=== PATIENT | female | born 1950 ===

== ENCOUNTER 2017-03-23 16:14 | Emergency (ER) | payer MEDICARE ==
[2017-03-23 16:19] VITALS: BMI 23.0
[2017-03-23 16:20] VITALS: O2SAT 98
--- NOTE | 2017-03-23 17:00 | C.PDOC ---
History Of Present Illness 66 y/o female with Hx of DM , HTN and recent Colonoscopy presents to ED with complaints of epigastric pain and requesting possible Endoscopy. Pain is rated a 5/5 Patient states she has "stomach problems" for about 5-6 years. Patient saw GI doctor "couple of weeks ago" for symptoms and was prescribed medication that did not alleviate symptoms. Patient also c/o chronic XAVIER intermittent right side and takes Motrin. No other complaints at this time. Time Seen by Provider: 03/23/17 16:45 Chief Complaint (Nursing): Abdominal Pain History Per: Patient History/Exam Limitations: no limitations Onset/Duration Of Symptoms: Days Current Symptoms Are (Timing): Still Present Quality Of Discomfort: Sharp Associated Symptoms: denies: Fever, Nausea, Vomiting Past Medical History Reviewed: Historical Data, Nursing Documentation, Vital Signs Vital Signs: Last Vital Signs Temp 98.1 F 03/23/17 16:19 Pulse 88 03/23/17 16:19 Resp 18 03/23/17 16:19 BP 173/90 H 03/23/17 16:19 Pulse Ox 98 03/23/17 18:03 - Medical History PMH: Arthritis, HTN, Hypercholesterolemia Surgical History: Cholecystectomy - [facility] Procedures DX ULTRASOUND-DIGESTIVE (03/21/07) ESOPHAGOGASTRODUODENOSCOPY [EGD] W/CLOSED BIOPSY (03/21/07) INJECT/INFUSE NEC (03/13/07) Family History: States: Unknown Family Hx - Social History Hx Alcohol Use: No Hx Substance Use: No - Immunization History Hx Tetanus Toxoid Vaccination: Yes Hx Influenza Vaccination: Yes Hx Pneumococcal Vaccination: Yes Review Of Systems Except As Marked, All Systems Reviewed And Found Negative. Constitutional: Negative for: Fever, Chills Cardiovascular: Negative for: Chest Pain Respiratory: Negative for: Cough, Shortness of Breath Gastrointestinal: Positive for: Abdominal Pain. Negative for: Nausea, Vomiting , Diarrhea Neurological: Positive for: Headache. Negative for: Weakness, Dizziness Physical Exam - Physical Exam Appears: Non-toxic, No Acute Distress Skin: Normal Color, Warm Head: Atraumatic, Normacephalic Eye(s): bilateral: Normal Inspection, PERRL, EOMI Ear(s): Bilateral: Normal Nose: Normal Oral Mucosa: Moist Throat: Normal, No Erythema Neck: Normal ROM Chest: Symmetrical Cardiovascular: Rhythm Regular, No Murmur Respiratory: Normal Breath Sounds, No Rales, No Rhonchi, No Wheezing Extremity: Normal ROM Neurological/Psych: Oriented x3, Normal Speech ED Course And Treatment O2 Sat by Pulse Oximetry: 98 (RA) Pulse Ox Interpretation: Normal Medical Decision Making Medical Decision Making: Patient treated for Gastritis and referred back to GI doctor for follow up and management Patient feeling much better, will d/c with family and f/u with gastro. Disposition Counseled Patient/Family Regarding: Studies Performed, Diagnosis, Need For Followup - Disposition Disposition: HOME/ ROUTINE Disposition Time: 18:37 Condition: STABLE Instructions: Gastritis (ED) Forms: General Discharge Instructions - POA Present On Arrival: None - Clinical Impression Clinical Impression: Gastroesophageal reflux disease - PA / BREAST BUFFER / Resident Statement MD/DO has reviewed & agrees with the documentation as recorded. MD/DO has examined the patient and agrees with the treatment plan. - Scribe Statement The provider has reviewed the documentation as recorded by the Yanique Alfredo All medical record entries made by the Marialuisaibdario were at my direction and personally dictated by me. I have reviewed the chart and agree that the record accurately reflects my personal performance of the history, physical exam, medical decision making, and the department course for this patient. I have also personally directed, reviewed, and agree with the discharge instructions and disposition.
[2017-03-23] MEDS ORDERED: Belladonna-Phenobarbital PO STA (17:28)
[2017-03-23] MEDS ORDERED: Aluminum Hydroxide/Magnesium Hydroxide Susp (30 mL) PO STA (17:28)
[2017-03-23] MEDS ORDERED: Lidocaine 2% Viscous 100 ml PO STA (17:28)
[2017-03-23] MEDS ORDERED: Belladonna-Phenobarbital ONE (17:41)
[2017-03-23] MEDS ORDERED: Aluminum Hydroxide/Magnesium Hydroxide Susp (30 mL) ONE (17:42)
[2017-03-23 18:58] VITALS: BP 182/84; PULSE 66; RESP 16; TEMP 97.8
== END 2017-03-23 18:58 | disposition home or self-care (01) ==
LOC: C.ER 16:14
DX: K21.9 Gastro-esophageal reflux disease without esophagitis (principal)